=== PATIENT | female | born 1985 | race Two or more races ===

== ENCOUNTER 2023-11-10 11:33 | Outpatient (CLI) | payer MEDICAID ==
--- NOTE | 2023-11-10 12:14 | Sleep Patient Instructions ---
Sleep Center Visit Summary - Patient Visit Information Reason for Visit: Initial consult for evaluation of sleep disordered breathing and other sleep issues. - Patient Instructions Instructions Attached: Sleep Study Additional Instructions: You will be completing a sleep study, either an in-lab polysomnography (PSG) or home sleep study (HST). You will follow-up in the sleep care office after the sleep study is completed to hear the results and talk about therapy, if needed. You will be called by our office staff to schedule this appointment, but you may contact us with any questions. - Clinic Information Contact: [facility] [address] [place] [address] [email or web address] T: [phone]
--- NOTE | 2023-11-10 12:20 | SLEEP CARE CONSULTATION ---
Information from patient questionnaire entered by Tamar Silva. I have reviewed and concur with the information entered by Tamar Silva. This document represents the service I personally performed and the decisions made by me, Moira Puga ARNP. History of Present Illness Service Date and Time: 11/10/2023 1133 Reason for Visit: New patient, Previously diagnosed sleep apnea Accompanied by: Siomara villalobos Chief Complaint: reports: Insomnia, Unrefreshed sleep, Excessive daytime sleepiness, Fatigue, Frequent awakenings at night Date of Onset: 7+YRS Usual bedtime: 8591-5471 Time it takes to fall asleep: 20-40MINS Snores at night: Yes Observed to quit breathing while asleep: No Sleeps alone due to snoring: No Number of times waking at night: 1-4 Reasons for waking at night: reports: Pain, Bathroom, Other (NOISE) Toss, Turn, or Twitch while sleeping: Yes Recalls having dreams: Yes Usually gets out of bed at: 5500-6742 Feels refreshed in the morning: No Morning headache: Yes Sleepy or fatigued during the day: Yes Ever fallen asleep while driving: Yes Takes day naps: No Dreams during day naps: Yes Prior sleep studies: Yes Additional HPI information: I had the pleasure of seeing JOSE CARLOS CRAWLEY today regarding the possibility of her having a sleep disorder. Her current complaints are excessive daytime sleepiness, fatigue, frequent night awakenings, insomnia and unrefreshed. She was previously diagnosed with LILO and it was very severe. She was placed on a CPAP but struggled with it and eventually had to return the machine. She comes in to re-start therapy. She has been on oxygen for about 2 years. She is currently on 1.5-2 L/min, 3L when ambulating. She snores and has woken herself up from the snoring. She has been told that she stops breathing when sleeping. She does fall asleep between 20-40 minutes and will get up for the bathroom. She wakes up with a headache after rough nights, about 2-3 times a week and does not last very long in the morning. She is not currently driving due to a few incidents of falling asleep when driving. She never had an accident. - Parasomnia Symptoms Ever been unable to move upon waking from sleep: No Walks in sleep: No Talks in sleep: No Ever acted out dreams in sleep: No Ever felt weak in the knees when startled or emotional: Yes Bothered by creepy, crawly, restless sensations in legs: No Problems with memory or concentration: Yes Subjective Initial [place] Sleepiness Scale score: 10 (11/10/23) Past Medical History Past Medical History: reports: Hypertension, Claustrophobia, Diabetes, Insulin resistance, Fibromyalgia, Anemia, Anxiety, Asthma, Depression, Other (LILO) Social History The patient's occupation is a [employer]. Patient is and lives in [place]. Have you smoked in the past 12 months: No Cigarettes per day (20/pack): 10 Years of smokin (2.5YRS) Quit date: 2007 Smoking Pack Years: 1.0 Alcohol use: No Caffeine use: Yes Caffeine amount and frequency: 1 A DAY Family History Family history of sleep disordered breathing: Yes Family Hx Sleep Apnea: Mother: Snoring, Sibling: Snoring Allergies and Home Medications Known drug allergies: Yes ( LISTED) Drug allergies reviewed: Yes Home medication list reviewed: Yes (as listed) Allergy and home medication list: Allergies ascorbic acid Allergy (Verified 11/10/23 12:03) Rash Iodinated Contrast Media Allergy (Verified 11/10/23 12:03) Anaphylaxis Sulfa (Sulfonamide Antibiotics) Allergy (Verified 11/10/23 12:03) Hives Home Medications Canagliflozin [Invokana] See Rx Instructions .ROUTE .COMPLEX 11/10/23 [History] Cholecalciferol (Vitamin D3) [Vitamin D3] See Rx Instructions .ROUTE .COMPLEX 0 11/10/23 [History] Insulin Aspart [Novolog] See Rx Instructions .ROUTE .COMPLEX 11/10/23 [History] Insulin Detemir [Levemir Flexpen] See Rx Instructions .ROUTE .COMPLEX 11/10/23 [History] Liraglutide [Victoza 2-Nitin] See Rx Instructions .ROUTE .COMPLEX 11/10/23 [History] Loratadine See Rx Instructions .ROUTE .COMPLEX 11/10/23 [History] Losartan [Cozaar] See Rx Instructions .ROUTE .COMPLEX 11/10/23 [History] Spironolactone [Aldactone] See Rx Instructions .ROUTE .COMPLEX 11/10/23 [History] amLODIPine [Norvasc] See Rx Instructions .ROUTE .COMPLEX 11/10/23 [History] hydroCHLOROthiazide [Hydrochlorothiazide] See Rx Instructions .ROUTE .COMPLEX 11/10/23 [History] metFORMIN [Glucophage] See Rx Instructions .ROUTE .COMPLEX 11/10/23 [History] Review of Systems Weight gain over past 5 years: 80 Weight loss over past 5 years: 20 Cardiovascular: reports: high blood pressure, irregular heart rate or pulse, leg or foot swelling Respiratory: reports: shortness of breath Gastrointestinal: denies: heartburn Urinary: reports: incontinence Neurological: reports: headaches Psychiatric: reports: anxiety, depression, claustrophobia. denies: Attention Deficit Hyperactivity Ear/Nose/Throat: reports: nose bleeds. denies: tonsillectomy Musculoskeletal: reports: joint pain, neck pain, back pain, muscle pain or cramping, mobility problems Immunologic: reports: sneezing, itching, allergies to food or environment Physical Exam Vital signs obtained and entered by: TAMAR Srivastava MA Blood Pressure: 166/114 (LEFT ARM; has not taken BP meds ) Cuff size: long Heart Rate: 105 O2 Saturation: 98 Height: 5 ft 6 in Weight: 393 lb Body Mass Index: 63.4 BMI Classification: Morbidly Obese Neck circumference: 26.5 Mouth and throat: narrow oropharynx Soft palate: long Hard palate: normal Uvula: normal Uvula visualization: 0% Mallampati Class IV Tongue: enlarged in size with teeth mancuso on lateral edges Tonsils: 2+ Neck: normal w/o lymphadenopathy or thyromegaly Heart: regular rate and rhythm Lungs: clear bilaterally Impression and Plan 1. Suspected Obstructive Sleep Apnea-Hypopnea Syndrome, as previously diagnosed and as suggested by a history of loud and irregular snoring, observed cessation of breath while asleep, morning headache, frequent awakening during the night, unrefreshed sleep, cognitive impairment, and excessive daytime sleepiness. She is currently on 1.5-2 L of oxygen per nasal cannula continuous 12/09. I recommend proceeding to polysomnography to confirm the diagnosis and to assess severity. If the patient has significant sleep disordered breathing, a manual CPAP titration study will also be performed to find the optimal treatment pressure. I informed the patient of what the sleep studies involve and after some discussion, obtained agreement to proceed. The pathophysiology of obstructive sleep apnea-hypopnea syndrome was discussed with the patient and health risks of cardiovascular and cerebrovascular disease if not treated. Risks of drowsy driving discussed in detail and patient advised to avoid long distance driving and to pot puller at the first sign of drowsiness. Patient agreed to plan. * Schedule polysomnography +- manual CPAP titration study and return in 1-2 weeks after the study to discuss result and initiate therapy. * Avoid long distance driving or driving when feeling sleepy. * Avoid alcohol, sedative and muscle relaxant around bedtime. * Attempt to lose weight. * Review instructions provided by trained office staff on how to prepare for the sleep study. * Return for follow-up after sleep study completed. Counseling Topics: Weight loss health impact Plan: sleep study, titration and follow up Visit Type: In Office Time Spent with Patient (minutes): 41 Provider Statement: I spent 100% of the Face to Face Visit with the patient with greater than 50% spent counseling the patient and coordination of care.
[2023-11-10 12:23] VITALS: BP 166/114; O2SAT 98
== END 2023-11-10 11:34 | disposition home or self-care (01) ==
LOC: SC 11:33
PROVIDERS: ATTEND Nurse Practitioner Family
DX: G47.33 Obstructive sleep apnea (adult) (pediatric) (principal); E66.01 Morbid (severe) obesity due to excess calories; Z68.44 Body mass index [BMI] 60.0-69.9, adult; Z87.891 Personal history of nicotine dependence
CPT/HCPCS: 99203; 99212